=== PATIENT | male | born 1940 | race Caucasian/White ===

== ENCOUNTER 2022-01-31 09:06 | Outpatient (CLI) | payer MEDICARE | END 2022-01-31 09:07 | disposition home or self-care (01) | LOC: CSHCT 09:06 | PROVIDERS: ATTEND Neurological Surgery | DX: M54.16 Radiculopathy, lumbar region (principal); M47.816 Spondylosis without myelopathy or radiculopathy, lumbar region; Z98.890 Other specified postprocedural states | CPT/HCPCS: 72131 ==